=== PATIENT | female | born 1935 | race Two or more races ===

== ENCOUNTER 2020-10-31 08:59 | Inpatient (IN) | payer OTHER ==
[2020-10-31 09:17] VITALS: BMI 27.3
[2020-10-31] MEDS ORDERED: ONDANSETRON 4 MG TABLET PO ONE (09:47)
[2020-10-31] MEDS ORDERED: morphine CARPU-JECT 2 MG/1 ML DISP.SYRIN IVPUSH ONE (09:47)
[2020-10-31] MEDS ORDERED: ONDANSETRON 4 MG/2 ML VIAL IVPUSH ONE ×2 (10:04→11:30)
[2020-10-31] MEDS ORDERED: ONDANSETRON 4 MG/2 ML VIAL ONE ×2 (10:05→11:31)
[2020-10-31] MEDS ORDERED: FAMOTIDINE 20 MG/50 ML IVPB 20 MG/50 ML MG IVPB ONE ×2 (10:05)
[2020-10-31] MEDS ORDERED: MORPHINE SULFATE 2 MG/ML VIAL ONE (10:05)
[2020-10-31] MEDS ORDERED: morphine CARPU-JECT 4 MG/1 ML DISP.SYRIN IVPUSH ONE (10:33)
[2020-10-31 10:34] LABS: BASO % 1.5 % (0-2.0); EOS % 0.1 % (0-4.5); HEMATOCRIT 25.4 % (32.4-45.2); HEMOGLOBIN 8.5 GM/dL (10.7-15.3); LYMPH % 13.5 % (8-40); MCH 28.7 pg (25.7-33.7); MCHC 33.3 g/dl (32.0-36.0); MEAN CELL VOLUME 86.3 fl (80-96); MEAN PLT VOLUME 9.5 fl (7.5-11.1); MONO % 7.9 % (3.8-10.2); PLATELET COUNT 319 K/MM3 (134-434); RBC 2.94 M/mm3 (3.60-5.2); RDW 16.4 % (11.6-15.6); WHITE BLOOD COUNT 6.8 K/mm3 (4.0-10.0)
[2020-10-31] MEDS ORDERED: cloNIDine HCL 0.1 MG TABLET PO ONE (10:38)
[2020-10-31 10:47] LABS: POTASSIUM 4.9 mmol/L (3.5-5.1)
[2020-10-31 10:49] LABS: ALBUMIN 2.6 g/dl (3.4-5.0); CALCIUM 9.1 mg/dL (8.5-10.1)
[2020-10-31 10:51] LABS: BLOOD UREA NITROGEN 49.4 mg/dL (7-18); MAGNESIUM 2.1 mg/dL (1.8-2.4)
[2020-10-31] MEDS ORDERED: cloNIDine HCL 0.1 MG TABLET ONE (10:54)
[2020-10-31] MEDS ORDERED: morphine SULFATE 4 MG/ML VIAL ONE (10:54)
[2020-10-31 10:55] LABS: BILIRUBIN,TOTAL 0.6 mg/dL (0.2-1); TOT PROT 7.5 g/dl (6.4-8.2)
[2020-10-31] MEDS ORDERED: LABETALOL HCL 5 MG/1 ML (100MG/20 ML VIAL) IVPUSH ONE ×2 (11:07→17:19)
[2020-10-31 11:12] LABS: INR 0.96 (0.83-1.09); PROTHROMBIN TIME (PATIENT) 11.6 SEC (9.7-13.0)
[2020-10-31] MEDS ORDERED: LABETALOL HCL 5 MG/1 ML (200MG/40ML VIAL) IVPB ONE ×2 (11:22→15:46)
[2020-10-31 11:27] LABS: CREATININE 8.8 mg/dL (0.55-1.3)
[2020-10-31] MEDS ORDERED: SODIUM CHLORIDE 500 ML IV STA (11:59)
[2020-10-31] MEDS: PANTOPRAZOLE SODIUM 40 MG VIAL IVPUSH SCH (16:06)
[2020-10-31] MEDS ORDERED: PANTOPRAZOLE SODIUM 40 MG/100 ML BAG IVPB ONE (16:08)
[2020-10-31] MEDS ORDERED: SODIUM CHLORIDE 0.45% 1,000 ML IV SCH (17:00)
[2020-10-31] MEDS: ALBUTEROL SO4 2.5/IPRATROPIUM 0.5 INH SOL 3 ML VIAL.NEB. NEB SCH ×4 (18:15→19:02)
[2020-10-31] MEDS ORDERED: ALBUTEROL SO4 HFA INHALER IH PRN (18:29)
[2020-10-31] MEDS ORDERED: NICARDIPINE 25 MG in DEXTROSE 5%-WATER - 240 ML IVPB SCH (19:30)
[2020-10-31] MEDS ORDERED: niCARdipine HCL 25 MG/10 ML AMPUL IVPB ONE (19:48)
[2020-10-31 19:53] LABS: ARTERIAL BLD GAS O2 SATURATION 97.6 mmHg (95-98); ARTERIAL BLOOD GAS PO2 115.7 mmHg (80-100)
[2020-10-31 19:56] LABS: ALLENS TEST POSITIVE
[2020-10-31 19:58] LABS: VENT MODE S/T; VENT RATE 12
[2020-10-31] MEDS ORDERED: ACETAMINOPHEN INJECTION 100 ML IVPB ONE (22:03)
[2020-10-31] MEDS: ACETAMINOPHEN 1000 MG/100 ML VIAL (NON FORMULARY) IVPB PRN (22:10)
[2020-10-31] MEDS ORDERED: FUROSEMIDE 40 MG/4 ML INJECTABLE VIAL IVPUSH ONE (22:34)
[2020-10-31] MEDS ORDERED: NIFEdipine E.R 60 MG TABLET PO ONE (22:45)
[2020-10-31] MEDS ORDERED: NIFEdipine E.R. 30 MG TABLET PO ONE (22:45)
[2020-10-31] MEDS ORDERED: FUROSEMIDE 40 MG/4 ML INJECTABLE VIAL ONE (23:29)
[2020-11-01] MEDS ORDERED: cloNIDine HCL 0.1 MG TABLET ONE ×3 (00:01→22:02)
[2020-11-01] MEDS ORDERED: NIFEdipine E.R. 30 MG TABLET ONE ×2 (00:02→10:24)
[2020-11-01] MEDS: cloNIDine HCL 0.1 MG TABLET PO SCH ×3 (00:09→22:31)
[2020-11-01 04:30] LABS: EPI CELLS 3 /uL (0-25.1); HYALINE CASTS 0 /uL (0-3.1); PH,URINE 7.5 (5.0-8.0); URINE APPEARANCE CLEAR; URINE BACTERIA 164 /uL (0-1359); URINE BILIRUBIN NEGATIVE (NEGATIVE); URINE COLOR YELLOW; URINE GLUCOSE (UA) 1+ (NEGATIVE); URINE KETONE NEGATIVE (NEGATIVE); URINE LEUK ESTERASE NEGATIVE (NEGATIVE); URINE NITRITE NEGATIVE (NEGATIVE); URINE PROTEIN 4+ (NEGATIVE); URINE RBC 10 /uL (0-23.9); URINE UROBILINOGEN 0.2 mg/dL (0.2-1.0)
[2020-11-01] MEDS ORDERED: ACETAMINOPHEN INJECTION 100 ML IVPB ONE (05:22)
[2020-11-01] MEDS: ACETAMINOPHEN 1000 MG/100 ML VIAL (NON FORMULARY) IVPB PRN (05:25)
[2020-11-01] MEDS ORDERED: HEPARIN NA (PORCINE) 5,000 UNITS/ML 1ML VIAL ONE ×3 (06:00→21:02)
[2020-11-01] MEDS: HEPARIN NA (PORCINE) 5,000 UNITS/ML 1ML VIAL SQ SCH ×3 (06:10→22:31)
[2020-11-01 08:09] LABS: HEMATOCRIT 21.2 % (32.4-45.2); MCH 28.4 pg (25.7-33.7); MCHC 32.7 g/dl (32.0-36.0); MEAN CELL VOLUME 86.7 fl (80-96); MEAN PLT VOLUME 9.2 fl (7.5-11.1); PLATELET COUNT 229 K/MM3 (134-434); RBC 2.44 M/mm3 (3.60-5.2); RDW 16.9 % (11.6-15.6); WHITE BLOOD COUNT 11.8 K/mm3 (4.0-10.0)
[2020-11-01 08:12] LABS: HEMOGLOBIN 6.9 GM/dL (10.7-15.3)
[2020-11-01 08:17] LABS: POTASSIUM 5.2 mmol/L (3.5-5.1)
[2020-11-01 08:19] LABS: MAGNESIUM 2.3 mg/dL (1.8-2.4)
[2020-11-01 08:20] LABS: ALBUMIN 2.4 g/dl (3.4-5.0); BLOOD UREA NITROGEN 55.5 mg/dL (7-18)
[2020-11-01 08:21] LABS: CALCIUM 8.6 mg/dL (8.5-10.1)
[2020-11-01 08:25] LABS: PHOSPHOROUS 7.6 mg/dL (2.5-4.9)
[2020-11-01 08:28] LABS: BILIRUBIN,TOTAL 0.3 mg/dL (0.2-1); TOT PROT 6.4 g/dl (6.4-8.2)
[2020-11-01 08:32] LABS: CREATININE 9.8 mg/dL (0.55-1.3)
[2020-11-01] MEDS ORDERED: NIFEdipine E.R 60 MG TABLET PO SCH (10:00)
[2020-11-01] MEDS ORDERED: cloNIDine HCL 0.1 MG TABLET PO SCH (10:00)
[2020-11-01] MEDS ORDERED: FAMOTIDINE 20 MG/50 ML IVPB 20 MG/50 ML MG IVPB ONE (10:25)
[2020-11-01] MEDS ORDERED: PANTOPRAZOLE SODIUM 40 MG VIAL ONE (10:25)
[2020-11-01] MEDS: NIFEdipine E.R 60 MG TABLET PO SCH (10:35)
[2020-11-01] MEDS: PANTOPRAZOLE SODIUM 40 MG VIAL IVPUSH SCH (10:35)
[2020-11-01] MEDS: FAMOTIDINE 20 MG/50 ML IVPB 20 MG/50 ML MG IVPB SCH (10:35)
[2020-11-01 11:01] LABS: BASO % 0.2 % (0-2.0); EOS % 0.1 % (0-4.5); HEMATOCRIT 22.4 % (32.4-45.2); HEMOGLOBIN 7.2 GM/dL (10.7-15.3); LYMPH % 7.3 % (8-40); MCH 27.9 pg (25.7-33.7); MCHC 31.9 g/dl (32.0-36.0); MEAN CELL VOLUME 87.4 fl (80-96); MEAN PLT VOLUME 9.2 fl (7.5-11.1); MONO % 7.1 % (3.8-10.2); NEUT % 85.3 % (42.8-82.8); PLATELET COUNT 222 K/MM3 (134-434); RBC 2.57 M/mm3 (3.60-5.2); RDW 16.8 % (11.6-15.6); WHITE BLOOD COUNT 12.3 K/mm3 (4.0-10.0)
[2020-11-01] MEDS ORDERED: SODIUM CHLORIDE 250 ML IV PRN (12:57)
[2020-11-01] MEDS ORDERED: MIDAZOLAM HCL 2 MG/2 ML SINGLE DOSE VIAL IVPUSH ONE ×3 (14:38→15:23)
[2020-11-01] MEDS ORDERED: MIDAZOLAM HCL 2 MG/2 ML SINGLE DOSE VIAL ONE ×2 (14:41→15:18)
[2020-11-01] MEDS ORDERED: ALBUTEROL SO4 2.5/IPRATROPIUM 0.5 INH SOL 3 ML VIAL.NEB. NEB PRN (18:10)
[2020-11-01] MEDS ORDERED: ATORVASTATIN CA 20 MG TABLET (FP) ONE (22:02)
[2020-11-01] MEDS: ATORVASTATIN CA 20 MG TABLET (FP) PO SCH (22:32)
[2020-11-02 07:25] LABS: BASO % 0.2 % (0-2.0); HEMATOCRIT 21.6 % (32.4-45.2); LYMPH % 6.7 % (8-40); MCH 28.1 pg (25.7-33.7); MCHC 32.2 g/dl (32.0-36.0); MEAN CELL VOLUME 87.5 fl (80-96); MEAN PLT VOLUME 9.9 fl (7.5-11.1); MONO % 8.4 % (3.8-10.2); NEUT % 84.7 % (42.8-82.8); PLATELET COUNT 197 K/MM3 (134-434); RBC 2.46 M/mm3 (3.60-5.2); RDW 16.9 % (11.6-15.6); WHITE BLOOD COUNT 16.9 K/mm3 (4.0-10.0)
[2020-11-02 07:42] LABS: POTASSIUM 3.5 mmol/L (3.5-5.1)
[2020-11-02 07:49] LABS: ALBUMIN 2.5 g/dl (3.4-5.0); BLOOD UREA NITROGEN 34.9 mg/dL (7-18); CALCIUM 8.6 mg/dL (8.5-10.1); MAGNESIUM 1.8 mg/dL (1.8-2.4)
[2020-11-02 07:51] LABS: CREATININE 6.9 mg/dL (0.55-1.3); PHOSPHOROUS 5.8 mg/dL (2.5-4.9)
[2020-11-02 07:53] LABS: BILIRUBIN,TOTAL 0.6 mg/dL (0.2-1); TOT PROT 6.8 g/dl (6.4-8.2)
[2020-11-02 08:02] LABS: HEMOGLOBIN 6.9 GM/dL (10.7-15.3)
[2020-11-02] MEDS: PANTOPRAZOLE SODIUM 40 MG VIAL IVPUSH SCH (12:41)
[2020-11-02] MEDS: FAMOTIDINE 20 MG/50 ML IVPB 20 MG/50 ML MG IVPB SCH (12:41)
[2020-11-02] MEDS: cloNIDine HCL 0.1 MG TABLET PO SCH ×2 (12:45→22:09)
[2020-11-02] MEDS: NIFEdipine E.R 60 MG TABLET PO SCH (12:45)
[2020-11-02] MEDS ORDERED: ACETAMINOPHEN 1000 MG/100 ML VIAL (NON FORMULARY) IVPB PRN (14:38)
[2020-11-02] MEDS: ATORVASTATIN CA 20 MG TABLET (FP) PO SCH (22:09)
[2020-11-03 08:32] LABS: HEMATOCRIT 24.4 % (32.4-45.2); HEMOGLOBIN 8.3 GM/dL (10.7-15.3); MCH 29.2 pg (25.7-33.7); MCHC 33.8 g/dl (32.0-36.0); MEAN CELL VOLUME 86.4 fl (80-96); MEAN PLT VOLUME 10.1 fl (7.5-11.1); PLATELET COUNT 170 K/MM3 (134-434); RBC 2.83 M/mm3 (3.60-5.2); RDW 15.9 % (11.6-15.6); WHITE BLOOD COUNT 13.6 K/mm3 (4.0-10.0)
[2020-11-03] MEDS ORDERED: PT OWN MED DRAWER 7, Y5N ONE (09:02)
[2020-11-03 09:04] LABS: POTASSIUM 4.2 mmol/L (3.5-5.1)
[2020-11-03 09:06] LABS: CALCIUM 8.3 mg/dL (8.5-10.1)
[2020-11-03 09:07] LABS: ALBUMIN 2.1 g/dl (3.4-5.0); BLOOD UREA NITROGEN 46.2 mg/dL (7-18)
[2020-11-03 09:10] LABS: PHOSPHOROUS 6.8 mg/dL (2.5-4.9)
[2020-11-03 09:11] LABS: BILIRUBIN,TOTAL 1.2 mg/dL (0.2-1)
[2020-11-03 09:12] LABS: TOT PROT 5.8 g/dl (6.4-8.2)
[2020-11-03] MEDS ORDERED: DEXTROSE 50%-WATER - 25 GM/50 ML VIAL IVPUSH ONE (09:31)
[2020-11-03] MEDS ORDERED: DEXTROSE 50%-WATER 25 GM/50 ML DISP.SYRIN ONE (09:31)
[2020-11-03 09:44] LABS: CREATININE 7.7 mg/dL (0.55-1.3)
[2020-11-03] MEDS: NIFEdipine E.R 60 MG TABLET PO SCH (09:46)
[2020-11-03] MEDS: cloNIDine HCL 0.1 MG TABLET PO SCH ×2 (09:46→23:20)
[2020-11-03] MEDS: PANTOPRAZOLE SODIUM 40 MG VIAL IVPUSH SCH (09:48)
[2020-11-03] MEDS: FAMOTIDINE 20 MG/50 ML IVPB 20 MG/50 ML MG IVPB SCH (09:48)
[2020-11-03] MEDS ORDERED: SODIUM CHLORIDE 250 ML IV PRN (12:37)
[2020-11-03] MEDS ORDERED: cefTRIAXone SODIUM 1 GM VIAL ONE (17:56)
[2020-11-03] MEDS ORDERED: DEXTROSE 5%-WATER - 50 ML IVPB ONE (17:56)
[2020-11-03] MEDS: CEFTRIAXONE 1 GM in DEXTROSE 5%-WATER - 50 ML IVPB SCH (18:35)
[2020-11-03] MEDS: ATORVASTATIN CA 20 MG TABLET (FP) PO SCH (23:20)
[2020-11-04 07:34] LABS: BASO % 0.5 % (0-2.0); HEMATOCRIT 23.7 % (32.4-45.2); HEMOGLOBIN 7.8 GM/dL (10.7-15.3); LYMPH % 6.3 % (8-40); MCH 28.7 pg (25.7-33.7); MCHC 32.9 g/dl (32.0-36.0); MEAN CELL VOLUME 87.3 fl (80-96); MEAN PLT VOLUME 10.1 fl (7.5-11.1); NEUT % 84.2 % (42.8-82.8); PLATELET COUNT 167 K/MM3 (134-434); RBC 2.71 M/mm3 (3.60-5.2); RDW 15.9 % (11.6-15.6)
[2020-11-04 08:21] LABS: BLOOD UREA NITROGEN 49.8 mg/dL (7-18); CALCIUM 8.1 mg/dL (8.5-10.1)
[2020-11-04 08:25] LABS: PHOSPHOROUS 6.1 mg/dL (2.5-4.9)
[2020-11-04 08:33] LABS: CREATININE 8.6 mg/dL (0.55-1.3)
[2020-11-04] MEDS ORDERED: DEXTROSE 5%-WATER - 50 ML IVPB ONE (09:59)
[2020-11-04] MEDS ORDERED: cefTRIAXone SODIUM 1 GM VIAL ONE (09:59)
[2020-11-04 10:57] LABS: BILIRUBIN,TOTAL 0.4 mg/dL (0.2-1)
[2020-11-04] MEDS: cloNIDine HCL 0.1 MG TABLET PO SCH ×2 (12:09→21:28)
[2020-11-04] MEDS: NIFEdipine E.R 60 MG TABLET PO SCH (12:10)
[2020-11-04] MEDS: FAMOTIDINE 20 MG/50 ML IVPB 20 MG/50 ML MG IVPB SCH (12:10)
[2020-11-04] MEDS: PANTOPRAZOLE SODIUM 40 MG VIAL IVPUSH SCH (12:10)
[2020-11-04] MEDS: CEFTRIAXONE 1 GM in DEXTROSE 5%-WATER - 50 ML IVPB SCH (13:23)
[2020-11-04] MEDS: ATORVASTATIN CA 20 MG TABLET (FP) PO SCH (21:28)
[2020-11-04 22:06] LABS: HEP B CORE AB, TOT Negative (Negative)
[2020-11-05 07:59] LABS: BASO % 0.5 % (0-2.0); EOS % 1.1 % (0-4.5); HEMATOCRIT 27.7 % (32.4-45.2); HEMOGLOBIN 9.4 GM/dL (10.7-15.3); LYMPH % 12.4 % (8-40); MCH 29.4 pg (25.7-33.7); MCHC 33.9 g/dl (32.0-36.0); MEAN CELL VOLUME 86.6 fl (80-96); MEAN PLT VOLUME 9.7 fl (7.5-11.1); MONO % 10.5 % (3.8-10.2); NEUT % 75.5 % (42.8-82.8); PLATELET COUNT 198 K/MM3 (134-434); RDW 16.2 % (11.6-15.6); WHITE BLOOD COUNT 9.7 K/mm3 (4.0-10.0)
[2020-11-05 08:13] LABS: POTASSIUM 3.5 mmol/L (3.5-5.1)
[2020-11-05 08:15] LABS: CALCIUM 7.8 mg/dL (8.5-10.1)
[2020-11-05 08:16] LABS: ALBUMIN 2.1 g/dl (3.4-5.0); BLOOD UREA NITROGEN 26.4 mg/dL (7-18)
[2020-11-05 08:19] LABS: BILIRUBIN,TOTAL 0.5 mg/dL (0.2-1); CREATININE 5.5 mg/dL (0.55-1.3)
[2020-11-05 08:20] LABS: TOT PROT 6.6 g/dl (6.4-8.2)
[2020-11-05] MEDS ORDERED: cefTRIAXone SODIUM 1 GM VIAL ONE (09:44)
[2020-11-05] MEDS ORDERED: DEXTROSE 5%-WATER - 50 ML IVPB ONE (09:44)
[2020-11-05] MEDS ORDERED: SODIUM CHLORIDE 250 ML IV PRN (10:31)
[2020-11-05] MEDS: PANTOPRAZOLE SODIUM 40 MG VIAL IVPUSH SCH (10:38)
[2020-11-05] MEDS: CEFTRIAXONE 1 GM in DEXTROSE 5%-WATER - 50 ML IVPB SCH (10:39)
[2020-11-05] MEDS: FAMOTIDINE 20 MG/50 ML IVPB 20 MG/50 ML MG IVPB SCH (10:39)
[2020-11-05] MEDS: NIFEdipine E.R 60 MG TABLET PO SCH (10:39)
[2020-11-05] MEDS: cloNIDine HCL 0.1 MG TABLET PO SCH (10:39)
[2020-11-05] MEDS ORDERED: MIDAZOLAM HCL 2 MG/2 ML SINGLE DOSE VIAL ONE (15:21)
[2020-11-05] MEDS ORDERED: ceFAZolin SODIUM 1 GM VIAL IVPB ONE (15:23)
[2020-11-05] MEDS ORDERED: PROPOFOL 20 ML ONE (15:28)
[2020-11-05] MEDS ORDERED: ALBUTEROL SO4 2.5/IPRATROPIUM 0.5 INH SOL 3 ML VIAL.NEB. NEB PRN (16:32)
[2020-11-05] MEDS: ATORVASTATIN CA 20 MG TABLET (FP) PO SCH (21:19)
[2020-11-06 09:11] LABS: HEMATOCRIT 23.5 % (32.4-45.2); HEMOGLOBIN 7.9 GM/dL (10.7-15.3); MCH 29.4 pg (25.7-33.7); MCHC 33.7 g/dl (32.0-36.0); MEAN CELL VOLUME 87.3 fl (80-96); MEAN PLT VOLUME 9.4 fl (7.5-11.1); PLATELET COUNT 157 K/MM3 (134-434); RDW 16.1 % (11.6-15.6); WHITE BLOOD COUNT 7.5 K/mm3 (4.0-10.0)
[2020-11-06 09:46] LABS: POTASSIUM 3.4 mmol/L (3.5-5.1)
[2020-11-06 09:47] LABS: CALCIUM 8.2 mg/dL (8.5-10.1)
[2020-11-06 09:48] LABS: ALBUMIN 1.7 g/dl (3.4-5.0); BLOOD UREA NITROGEN 37.7 mg/dL (7-18)
[2020-11-06 09:51] LABS: CREATININE 6.8 mg/dL (0.55-1.3)
[2020-11-06 09:53] LABS: BILIRUBIN,TOTAL 0.5 mg/dL (0.2-1)
[2020-11-06] MEDS ORDERED: CEFTRIAXONE 1 GM in DEXTROSE 5%-WATER - 50 ML IVPB SCH (10:00)
[2020-11-06] MEDS ORDERED: cloNIDine HCL 0.1 MG TABLET PO SCH ×2 (10:00)
[2020-11-06] MEDS ORDERED: FAMOTIDINE 20 MG/50 ML IVPB 20 MG/50 ML MG IVPB SCH (10:00)
[2020-11-06] MEDS: metoPROLOL SUCCINATE 25 MG TAB.SR.24H (FP) PO SCH (13:06)
[2020-11-06] MEDS: PANTOPRAZOLE SODIUM 40 MG VIAL IVPUSH SCH (13:06)
[2020-11-06] MEDS: NIFEdipine E.R 60 MG TABLET PO SCH (13:06)
[2020-11-06] MEDS ORDERED: POTASSIUM CHLORIDE TABS 10 MEQ TABLET.ER (FP) PO ONE (15:26)
[2020-11-06] MEDS: ATORVASTATIN CA 20 MG TABLET (FP) PO SCH (22:04)
[2020-11-06] MEDS: HEPARIN NA (PORCINE) 5,000 UNITS/ML 1ML VIAL SQ SCH (22:04)
[2020-11-07] MEDS: HEPARIN NA (PORCINE) 5,000 UNITS/ML 1ML VIAL SQ SCH ×3 (05:42→21:11)
[2020-11-07 07:26] LABS: HEMATOCRIT 24.3 % (32.4-45.2); HEMOGLOBIN 8.2 GM/dL (10.7-15.3); MCH 29.5 pg (25.7-33.7); MCHC 33.9 g/dl (32.0-36.0); PLATELET COUNT 159 K/MM3 (134-434); RBC 2.79 M/mm3 (3.60-5.2); RDW 16.1 % (11.6-15.6); WHITE BLOOD COUNT 8.4 K/mm3 (4.0-10.0)
[2020-11-07 07:42] LABS: POTASSIUM 3.6 mmol/L (3.5-5.1)
[2020-11-07 07:47] LABS: ALBUMIN 1.8 g/dl (3.4-5.0); CALCIUM 8.3 mg/dL (8.5-10.1)
[2020-11-07 07:51] LABS: CREATININE 4.4 mg/dL (0.55-1.3)
[2020-11-07 07:52] LABS: BILIRUBIN,TOTAL 0.6 mg/dL (0.2-1); TOT PROT 5.6 g/dl (6.4-8.2)
[2020-11-07] MEDS: NIFEdipine E.R 60 MG TABLET PO SCH (09:09)
[2020-11-07] MEDS: metoPROLOL SUCCINATE 25 MG TAB.SR.24H (FP) PO SCH (09:10)
[2020-11-07] MEDS: PANTOPRAZOLE SODIUM 40 MG VIAL IVPUSH SCH (12:22)
[2020-11-07] MEDS: ATORVASTATIN CA 20 MG TABLET (FP) PO SCH (21:27)
[2020-11-08] MEDS: HEPARIN NA (PORCINE) 5,000 UNITS/ML 1ML VIAL SQ SCH ×3 (06:01→21:36)
[2020-11-08] MEDS ORDERED: SODIUM CHLORIDE 250 ML IV PRN ×2 (08:24→14:32)
[2020-11-08] MEDS ORDERED: EPOETIN ALFA-EPBX 3,000 UNIT/ML VIAL IVPUSH ONE (08:30)
[2020-11-08 09:46] LABS: HEMOGLOBIN 8.9 GM/dL (10.7-15.3); MCH 28.9 pg (25.7-33.7); MCHC 32.8 g/dl (32.0-36.0); MEAN CELL VOLUME 88.1 fl (80-96); PLATELET COUNT 182 K/MM3 (134-434); RBC 3.07 M/mm3 (3.60-5.2); RDW 15.8 % (11.6-15.6); WHITE BLOOD COUNT 9.8 K/mm3 (4.0-10.0)
[2020-11-08] MEDS: NIFEdipine E.R 60 MG TABLET PO SCH (10:38)
[2020-11-08] MEDS: PANTOPRAZOLE 40 MG TABLET PO SCH (10:39)
[2020-11-08] MEDS: metoPROLOL SUCCINATE 25 MG TAB.SR.24H (FP) PO SCH (10:39)
[2020-11-08 11:03] LABS: CALCIUM 8.8 mg/dL (8.5-10.1)
[2020-11-08 11:04] LABS: ALBUMIN 2.2 g/dl (3.4-5.0)
[2020-11-08 11:05] LABS: BLOOD UREA NITROGEN 35.2 mg/dL (7-18)
[2020-11-08 11:08] LABS: CREATININE 5.5 mg/dL (0.55-1.3)
[2020-11-08 11:09] LABS: BILIRUBIN,TOTAL 0.5 mg/dL (0.2-1); TOT PROT 6.6 g/dl (6.4-8.2)
[2020-11-08] MEDS ORDERED: metoPROLOL SUCCINATE 25 MG TAB.SR.24H (FP) PO ONE (13:25)
[2020-11-08] MEDS ORDERED: QUEtiapine FUMARATE 25 MG TABLET PO ONE (20:00)
[2020-11-08] MEDS: ATORVASTATIN CA 20 MG TABLET (FP) PO SCH (21:37)
[2020-11-09] MEDS ORDERED: ACETAMINOPHEN 325 MG TABLET (FP) PO ONE (03:50)
[2020-11-09] MEDS: HEPARIN NA (PORCINE) 5,000 UNITS/ML 1ML VIAL SQ SCH ×3 (06:09→23:17)
[2020-11-09 07:44] LABS: HEMATOCRIT 26.8 % (32.4-45.2); HEMOGLOBIN 9.1 GM/dL (10.7-15.3); MCH 29.8 pg (25.7-33.7); MCHC 33.9 g/dl (32.0-36.0); MEAN PLT VOLUME 9.9 fl (7.5-11.1); PLATELET COUNT 188 K/MM3 (134-434); RBC 3.04 M/mm3 (3.60-5.2); RDW 16.3 % (11.6-15.6); WHITE BLOOD COUNT 10.4 K/mm3 (4.0-10.0)
[2020-11-09 08:15] LABS: POTASSIUM 3.9 mmol/L (3.5-5.1)
[2020-11-09 08:19] LABS: ALBUMIN 2.1 g/dl (3.4-5.0)
[2020-11-09 08:21] LABS: BLOOD UREA NITROGEN 22.4 mg/dL (7-18)
[2020-11-09 08:22] LABS: CALCIUM 8.7 mg/dL (8.5-10.1)
[2020-11-09 08:24] LABS: BILIRUBIN,TOTAL 0.6 mg/dL (0.2-1); CREATININE 3.9 mg/dL (0.55-1.3); TOT PROT 6.5 g/dl (6.4-8.2)
[2020-11-09] MEDS: PANTOPRAZOLE 40 MG TABLET PO SCH (10:13)
[2020-11-09] MEDS: NIFEdipine E.R. 90 MG TABLET PO SCH (10:13)
[2020-11-09] MEDS: QUEtiapine FUMARATE 25 MG TABLET PO SCH (23:17)
[2020-11-09] MEDS: ATORVASTATIN CA 20 MG TABLET (FP) PO SCH (23:17)
[2020-11-10] MEDS: HEPARIN NA (PORCINE) 5,000 UNITS/ML 1ML VIAL SQ SCH ×3 (06:49→21:44)
[2020-11-10 08:27] LABS: BASO % 0.9 % (0-2.0); EOS % 0.7 % (0-4.5); LYMPH % 10.6 % (8-40); MCH 27.9 pg (25.7-33.7); MEAN CELL VOLUME 87.1 fl (80-96); MEAN PLT VOLUME 9.9 fl (7.5-11.1); MONO % 11.2 % (3.8-10.2); NEUT % 76.6 % (42.8-82.8); PLATELET COUNT 193 K/MM3 (134-434); RBC 2.87 M/mm3 (3.60-5.2); RDW 16.1 % (11.6-15.6)
[2020-11-10 08:51] LABS: POTASSIUM 3.8 mmol/L (3.5-5.1)
[2020-11-10 09:02] LABS: CALCIUM 8.5 mg/dL (8.5-10.1)
[2020-11-10 09:03] LABS: BLOOD UREA NITROGEN 34.2 mg/dL (7-18)
[2020-11-10 09:05] LABS: CREATININE 5.3 mg/dL (0.55-1.3)
[2020-11-10 09:07] LABS: BILIRUBIN,TOTAL 0.7 mg/dL (0.2-1); TOT PROT 6.2 g/dl (6.4-8.2)
[2020-11-10] MEDS: NIFEdipine E.R. 90 MG TABLET PO SCH (10:24)
[2020-11-10] MEDS: PANTOPRAZOLE 40 MG TABLET PO SCH (10:24)
[2020-11-10] MEDS: ATORVASTATIN CA 20 MG TABLET (FP) PO SCH (21:44)
[2020-11-10] MEDS: QUEtiapine FUMARATE 25 MG TABLET PO SCH (21:45)
[2020-11-11] MEDS: HEPARIN NA (PORCINE) 5,000 UNITS/ML 1ML VIAL SQ SCH (06:01)
[2020-11-11] MEDS ORDERED: SODIUM CHLORIDE 250 ML IV PRN (07:03)
[2020-11-11] MEDS ORDERED: EPOETIN ALFA-EPBX 4,000 UNIT/ML VIAL IVPUSH ONE (07:15)
[2020-11-11 07:49] LABS: BASO % 0.5 % (0-2.0); EOS % 0.6 % (0-4.5); HEMATOCRIT 24.9 % (32.4-45.2); HEMOGLOBIN 8.1 GM/dL (10.7-15.3); LYMPH % 14.3 % (8-40); MCH 28.9 pg (25.7-33.7); MCHC 32.6 g/dl (32.0-36.0); MEAN CELL VOLUME 88.6 fl (80-96); MEAN PLT VOLUME 10.3 fl (7.5-11.1); MONO % 9.6 % (3.8-10.2); PLATELET COUNT 217 K/MM3 (134-434); RBC 2.81 M/mm3 (3.60-5.2); RDW 15.8 % (11.6-15.6)
[2020-11-11 08:04] LABS: POTASSIUM 3.8 mmol/L (3.5-5.1)
[2020-11-11 08:14] LABS: BLOOD UREA NITROGEN 43.5 mg/dL (7-18); CALCIUM 8.4 mg/dL (8.5-10.1)
[2020-11-11 08:17] LABS: CREATININE 6.4 mg/dL (0.55-1.3)
[2020-11-11 08:18] LABS: BILIRUBIN,TOTAL 0.6 mg/dL (0.2-1); TOT PROT 6.2 g/dl (6.4-8.2)
[2020-11-11 10:58] VITALS: BP 168/86; PULSE 74
[2020-11-11] MEDS: NIFEdipine E.R. 90 MG TABLET PO SCH ×2 (11:07→11:19)
[2020-11-11] MEDS: PANTOPRAZOLE 40 MG TABLET PO SCH (11:09)
[2020-11-11 11:57] VITALS: TEMP 98.7
== END 2020-11-11 13:04 | disposition home or self-care (01) | DRG 291 ==
LOC: JER 08:59 → JERBED 16:02 → J4W 11-02 04:50
PROVIDERS: ADMIT Internal Medicine; ATTEND Internal Medicine
PROC: 5A1D70Z Performance of Urinary Filtration, Intermittent, Less than 6 Hours Per Day (ICD-10-PCS; 2020-11-01)
PROC: 30233N1 Transfusion of Nonautologous Red Blood Cells into Peripheral Vein, Percutaneous Approach (ICD-10-PCS; principal; 2020-11-02)
PROC: 5A1D70Z Performance of Urinary Filtration, Intermittent, Less than 6 Hours Per Day (ICD-10-PCS; 2020-11-04)
PROC: 05HM33Z Insertion of Infusion Device into Right Internal Jugular Vein, Percutaneous Approach (ICD-10-PCS; 2020-11-05)
PROC: 5A1D70Z Performance of Urinary Filtration, Intermittent, Less than 6 Hours Per Day (ICD-10-PCS; 2020-11-06)
PROC: 5A1D70Z Performance of Urinary Filtration, Intermittent, Less than 6 Hours Per Day (ICD-10-PCS; 2020-11-08)
PROC: 5A1D70Z Performance of Urinary Filtration, Intermittent, Less than 6 Hours Per Day (ICD-10-PCS; 2020-11-11)
DX: I13.2 Hypertensive heart and chronic kidney disease with heart failure and with stage 5 chronic kidney disease, or end stage renal disease (principal); N18.6 End stage renal disease; N17.9 Acute kidney failure, unspecified; I50.30 Unspecified diastolic (congestive) heart failure; I16.1 Hypertensive emergency; E87.2 Acidosis; N39.0 Urinary tract infection, site not specified; B17.9 Acute viral hepatitis, unspecified; I47.1 Supraventricular tachycardia; F05 Delirium due to known physiological condition; E78.5 Hyperlipidemia, unspecified; D63.1 Anemia in chronic kidney disease; E16.2 Hypoglycemia, unspecified; I49.8 Other specified cardiac arrhythmias; R45.1 Restlessness and agitation; Z99.2 Dependence on renal dialysis
CPT/HCPCS: 36415; 36430; 36600; 70450-TC; 71045-TC-FY; 71275-TC; 74174-TC; 76000-TC-FY; 76775-TC; 76856-TC; 80048; 80053; 81003; 82247; 82272; 82436; 82550; 82553; 82565; 82728; 82803; 83036; 83540; 83550; 83605; 83690; 83735; 84100; 84133; 84300; 84466; 84484; 85025; 85027; 85610; 86704; 86706; 86707; 86708; 86709; 86803; 86850; 86870; 86900; 86901; 86902; 86922; 87077; 87086; 87340; 87804; 93005; 93010; 94660; 94760; 97116-GP; 97161-GP; 99291; C9803; J0131; J0735; J1644; P9058; Q5106; Q9967; U0003

== ENCOUNTER 2020-11-27 07:13 | Inpatient (IN) | payer OTHER ==
[2020-11-27 07:38] VITALS: BMI 29.2
[2020-11-27 09:38] LABS: BASO % 1.1 % (0-2.0); EOS % 1.4 % (0-4.5); HEMATOCRIT 24.4 % (32.4-45.2); HEMOGLOBIN 8.2 GM/dL (10.7-15.3); LYMPH % 17.3 % (8-40); MCH 30.5 pg (25.7-33.7); MCHC 33.5 g/dl (32.0-36.0); MEAN PLT VOLUME 8.6 fl (7.5-11.1); MONO % 12.8 % (3.8-10.2); NEUT % 67.4 % (42.8-82.8); PLATELET COUNT 260 K/MM3 (134-434); RBC 2.68 M/mm3 (3.60-5.2); RDW 16.5 % (11.6-15.6); WHITE BLOOD COUNT 7.5 K/mm3 (4.0-10.0)
[2020-11-27 09:46] LABS: INR 0.97 (0.83-1.09); PROTHROMBIN TIME (PATIENT) 11.7 SEC (9.7-13.0)
[2020-11-27 09:47] LABS: POTASSIUM 4.5 mmol/L (3.5-5.1)
[2020-11-27 09:51] LABS: ALBUMIN 2.6 g/dl (3.4-5.0); BLOOD UREA NITROGEN 27.9 mg/dL (7-18); CALCIUM 9.3 mg/dL (8.5-10.1)
[2020-11-27 09:54] LABS: CREATININE 4.4 mg/dL (0.55-1.3)
[2020-11-27 09:55] LABS: BILIRUBIN,TOTAL 0.5 mg/dL (0.2-1); TOT PROT 7.2 g/dl (6.4-8.2)
[2020-11-27] MEDS ORDERED: LIDOCAINE HCL 1%, 10 MG/ML (20ML VIAL) ONE (14:07)
[2020-11-27] MEDS ORDERED: ERGOCALCIFEROL (VIT D2) 50,000 UNIT (1.25 MG) CAPSULE PO SCH ×2 (14:45→16:00)
[2020-11-27] MEDS ORDERED: PROPOFOL 20 ML ONE (15:07)
[2020-11-27] MEDS ORDERED: ceFAZolin SODIUM 1 GM VIAL IVPB ONE (15:33)
[2020-11-27] MEDS ORDERED: LIDOCAINE HCL 1%, 10 MG/ML (20ML VIAL) INF ONE (15:45)
[2020-11-27] MEDS ORDERED: ONDANSETRON 4 MG/2 ML VIAL IVPUSH PRN ×2 (15:53→16:00)
[2020-11-27] MEDS: SODIUM BICARBONATE 650 MG TABLET PO SCH (21:20)
[2020-11-27] MEDS ORDERED: QUEtiapine FUMARATE 25 MG TABLET PO SCH ×2 (22:00)
[2020-11-27] MEDS ORDERED: SODIUM BICARBONATE 650 MG TABLET PO SCH (22:00)
[2020-11-27] MEDS ORDERED: ATORVASTATIN CA 20 MG TABLET (FP) PO SCH ×2 (22:00)
[2020-11-27] MEDS ORDERED: ACETAMINOPHEN 325 MG TABLET (FP) PO ONE (22:21)
[2020-11-27] MEDS ORDERED: ACETAMINOPHEN 325 MG TABLET (FP) PO PRN (22:21)
[2020-11-28] MEDS: SODIUM BICARBONATE 650 MG TABLET PO SCH ×2 (05:56→15:37)
[2020-11-28] MEDS ORDERED: EPOETIN ALFA 10,000 UNIT/1 ML VIAL IVPUSH ONE (07:59)
[2020-11-28] MEDS ORDERED: SODIUM CHLORIDE 250 ML IV PRN (07:59)
[2020-11-28 08:28] LABS: EOS % 1.8 % (0-4.5); LYMPH % 17.4 % (8-40); MCH 30.6 pg (25.7-33.7); MCHC 33.6 g/dl (32.0-36.0); MONO % 14.3 % (3.8-10.2); NEUT % 65.5 % (42.8-82.8); PLATELET COUNT 207 K/MM3 (134-434); RDW 17.1 % (11.6-15.6); WHITE BLOOD COUNT 6.2 K/mm3 (4.0-10.0)
[2020-11-28 08:31] LABS: POTASSIUM 4.5 mmol/L (3.5-5.1)
[2020-11-28 09:16] LABS: CALCIUM 8.5 mg/dL (8.5-10.1)
[2020-11-28 09:17] LABS: ALBUMIN 2.1 g/dl (3.4-5.0); BLOOD UREA NITROGEN 35.2 mg/dL (7-18); MAGNESIUM 2.4 mg/dL (1.8-2.4)
[2020-11-28 09:20] LABS: CREATININE 5.1 mg/dL (0.55-1.3); PHOSPHOROUS 2.8 mg/dL (2.5-4.9)
[2020-11-28 09:21] LABS: BILIRUBIN,TOTAL 0.6 mg/dL (0.2-1); TOT PROT 5.9 g/dl (6.4-8.2)
[2020-11-28] MEDS ORDERED: ASCORBIC ACID 500 MG TABLET (FP) PO SCH ×2 (10:00)
[2020-11-28] MEDS ORDERED: CALCITRIOL 0.25 MCG CAPSULE (FP) PO SCH ×2 (10:00)
[2020-11-28] MEDS ORDERED: VITAMIN B COMP W-C 1 EA TABLET (NEPHRO-VITE) PO SCH ×2 (10:00)
[2020-11-28] MEDS ORDERED: ZINC GLUCONATE 100 MG PO SCH (10:00)
[2020-11-28] MEDS ORDERED: NIFEdipine E.R. 90 MG TABLET PO SCH ×2 (10:00)
[2020-11-28] MEDS ORDERED: ZINC SULFATE 220 MG CAPSULE (FP) PO SCH (10:00)
[2020-11-28] MEDS ORDERED: PATIENT'S OWN MEDICATION (NON-FORMULARY) (Zinc Gluconate [Zinc] 50 MG Tablet) PO SCH (10:00)
[2020-11-28 11:59] VITALS: TEMP 98.1
[2020-11-28] MEDS ORDERED: EPOETIN ALFA-EPBX 3,000 UNIT, EPOETIN ALFA-EPBX 2,000 UNIT IVPUSH ONE (13:45)
[2020-11-28 15:41] VITALS: BP 172/113; PULSE 117
== END 2020-11-28 18:28 | disposition home or self-care (01) | DRG 698 ==
LOC: JER 07:13 → JERBED 12:41 → J4W 17:48
PROVIDERS: ADMIT Internal Medicine; ATTEND Internal Medicine
PROC: 02HV33Z Insertion of Infusion Device into Superior Vena Cava, Percutaneous Approach (ICD-10-PCS; 2020-11-27)
PROC: B548ZZA Ultrasonography of Superior Vena Cava, Guidance (ICD-10-PCS; 2020-11-27)
PROC: 3E043GC Introduction of Other Therapeutic Substance into Central Vein, Percutaneous Approach (ICD-10-PCS; 2020-11-27)
PROC: 5A1D70Z Performance of Urinary Filtration, Intermittent, Less than 6 Hours Per Day (ICD-10-PCS; principal; 2020-11-28)
DX: T82.42XA Displacement of vascular dialysis catheter, initial encounter (principal); N18.6 End stage renal disease; I12.0 Hypertensive chronic kidney disease with stage 5 chronic kidney disease or end stage renal disease; N17.9 Acute kidney failure, unspecified; E87.2 Acidosis; Z99.2 Dependence on renal dialysis; E78.5 Hyperlipidemia, unspecified; Y83.9 Surgical procedure, unspecified as the cause of abnormal reaction of the patient, or of later complication, without mention of misadventure at the time of the procedure
CPT/HCPCS: 36415; 36430; 71045-TC-FY; 76000-TC-FY; 80053; 83735; 84100; 85025; 85610; 85730; 86850; 86900; 86901; 86922; 93005; 93010; 94760; 99285-25; C9803; J1644; P9058; Q5106; U0003